=== PATIENT | male | born 1980 | race Caucasian/White ===

== ENCOUNTER 2017-11-14 14:12 | Emergency (ER) | payer BC, OTHER ==
[2017-11-14 16:17] VITALS: BP 125/81
--- NOTE | 2017-11-14 16:17 | RAD ---
INDICATION: The patient inhaled exhaust 4 days earlier at an indoor tractor pull COMPARISON: None TECHNIQUE: PA and lateral views of the chest were obtained. FINDINGS: The heart and mediastinum are normal in size and contour. The lungs are grossly clear. There is no evidence of large pleural effusion. Visualized bones are normal for the patient's age. There is no radiographic evidence of free air beneath the diaphragm IMPRESSION: No radiographic evidence of acute cardiopulmonary disease.
--- NOTE | 2017-11-14 16:30 | UC ---
Beatriz Fonseca Gabriel, scribed for Violeta Herman MD on 11/14/17 at 1515 . Shortness of Breath HPI - HPI Summary HPI Summary: This patient is a 37 year old M presenting to [facility] accompanied by his with a chief complaint of increasing SOB. Pt was at an indoor tractor pull for 11-12 hours 6 days ago and inhaled exhaust fumes. He denies any SOB at that time. The patient rates the pain 0/10 in severity. Patient reports a slight headache the day after the tractor pull that has resolved. Patient denies confusion, CP, edema, n/v/d, and palpitations. Three days ago he developed a productive coughing, sore throat, general malaise, nasal discharge, and was nauseous. He states he had no concern for CO poising and states he believed he was developing a URI. Pt additionally c/o trouble sleeping for the past 3 month after he found his father and increased stress. 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 Notably, he has morbid obesity - History of Current Complaint Chief Complaint: UCRespiratory Stated Complaint: INHALED EXHUST FUMES Time Seen by Provider: 11/14/17 14:59 Hx Obtained From: Patient Onset/Duration: Lasting Days, Still Present Timing: Constant Current Severity: Moderate Dyspnea At: Exertion Associated Signs & Symptoms: Positive: Other - productive coughing, sore throat , general malaise, nausea, nasal discharge, - Risk Factors Cardiac: Family History - Allergy/Home Medications Allergies/Adverse Reactions: Allergies Allergy/AdvReac Type Severity Reaction Status Date / Time guaifenesin [From Mucinex] Allergy Altered Verified 11/14/17 14:30 Mental Status onions Allergy Severe Nausea And Uncoded 11/16/12 11:57 Vomiting Home Medications: Home Medications Cholecalciferol TAB* [Vitamin D TAB*] 1 tab PO DAILY 11/14/17 [History Confirmed 11/14/17] Loratadine [Claritin] 10 mg PO DAILY 11/14/17 [History Confirmed 11/14/17] Omeprazole CAP* [Prilosec CAP* 20 MG] 10 mg PO DAILY 11/14/17 [History Confirmed 11/14/17] Potassium Gluconate [Potassium] 600 mg PO DAILY 11/14/17 [History Confirmed ] PMH/Surg Hx/FS Hx/Imm Hx Previously Healthy: Yes - morbid obesity GI/ History: Gastroesophageal Reflux - Surgical History Surgical History: Yes Surgery Procedure, Year, and Place: appendectomy - Family History Known Family History: Positive: Cardiac Disease - father massive [place] age 69 , Other - obesity; mother [place] breast - Social History 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 Sleep very disrupted since August when he found his father , unexpected. Is Patient Immunocompromised?: No All Other Systems Reviewed And Are Negative: Yes Physical Exam Triage Information Reviewed: Yes Appearance: Ill-Appearing - morbidly obese, looks mildly unwell. Wearing oxygen at the time of the exam, Obese Vital Signs: Initial Vital Signs Temp 98.1 F 11/14/17 14:34 Pulse 120 11/14/17 14:34 Resp 20 11/14/17 14:34 BP 122/79 11/14/17 14:34 Pulse Ox 97 11/14/17 14:34 Eyes: Positive: Conjunctiva Clear ENT: Positive: Pharynx normal Neck: Positive: Supple, Nontender, No Lymphadenopathy Respiratory: Positive: Lungs clear, Normal breath sounds Cardiovascular: Positive: RRR, No Murmur, Tachycardia Abdominal Exam: Other Musculoskeletal: Positive: Strength Intact Neurological: Positive: Alert, Muscle Tone Normal Psychological Exam: Normal Skin Exam: Normal Diagnostics - Radiology CXR Radiology Interpretation Completed By: Radiologist - No radiographic evidence of acute cardiopulmonary disease. Dr. Herman has reviewed this report. - EKG Cardiac Rate: Tachycardia - at 101 BPM Cardiac Rhythm: Sinus: Normal - no st/t changes Ectopy: None ST Segment: Normal Shortness of Breath Dx - Course Course Of Treatment: Pt medications reviewed this visit. Augmentin for treatment of sinusitis. - Differential Dx/Diagnosis Differential Diagnosis/HQI/PQRI: Bronchitis, CHF, Pneumonia, Other - URI Provider Diagnoses: sinusitis, likely early bronchitis. Grief reaction with insomnia. Discharge - Sign-Out/Discharge Documenting (check all that apply): Discharge - Discharge Plan Condition: Stable Disposition: HOME Prescriptions: Amoxicillin/Clavulanate TAB* [Augmentin TAB 875*] 875 mg PO BID #20 tab Patient Education Materials: Sinusitis (ED) Referrals: No Primary Care Phys,NOPCP [Primary Care Provider] - Additional Instructions: As reviewed,it is likely that this is a respiratory illness unrelated to the exposure last weekend. Begin augmentin for treatment of sinus and respiratory infection. Off work tomorrow. Ensure that you return to the emergency room if you have persistent shortness of breath. I suggest that you schedule a follow up visit with [facility] to seek support for insomnia and the stress you are experiencing. - Billing Disposition and Condition Condition: STABLE Disposition: HOME The documentation as recorded by the Beatriz edwards Gabriel accurately reflects the service I personally performed and the decisions made by me, Violeta Herman MD.
== END 2017-11-14 16:51 | disposition home or self-care (01) ==
LOC: UCEAST 14:12
DX: J32.9 Chronic sinusitis, unspecified (principal); F43.20 Adjustment disorder, unspecified; G47.00 Insomnia, unspecified; E66.01 Morbid (severe) obesity due to excess calories; K21.9 Gastro-esophageal reflux disease without esophagitis; F17.210 Nicotine dependence, cigarettes, uncomplicated
CPT/HCPCS: 71046; 93005; 99212; G0463

== ENCOUNTER 2018-02-10 09:07 | Emergency (ER) | payer BC ==
[2018-02-10 09:35] VITALS: BP 98/52
--- NOTE | 2018-02-10 10:26 | UC ---
Beatriz Fonseca Gabriel, scribed for Carlton Cartagena MD on 02/10/18 at 0924 . Throat Pain/Nasal Main HPI - HPI Summary HPI Summary: This patient is a 37 year old M [place] [facility] with a chief complaint of URI sx since 02-03-18. The patient rates the pain 3/10 in severity. Patient reports chills, rhinorrhea, right eye discharge, green productive cough, redness of the right eye, ears feeling plugged, and chest tightness. Patient denies fever and eye trauma. Pt is also concerned that he developed lactose intolerance after taking augmentin in october and states he has had intermittent diarrhea when he ingests dairy since. - History of Current Complaint Stated Complaint: SINUS COMPLAINT Time Seen by Provider: 02/10/18 09:15 Hx Obtained From: Patient Onset/Duration: Lasting Days, Still Present Severity: Moderate Pain Intensity: 3 Cough: Productive Associated Signs & Symptoms: Positive: Negative - eye trauma, Nasal Discharge. Negative: Fever - Allergies/Home Medications Allergies/Adverse Reactions: Allergies Allergy/AdvReac Type Severity Reaction Status Date / Time guaifenesin [From Mucinex] Allergy Altered Verified 11/14/17 14:30 Mental Status onions Allergy Severe Nausea And Uncoded 11/16/12 11:57 Vomiting PMH/Surg Hx/FS Hx/Imm Hx Other History Of: Negative For: Hepatitis B, Anticoagulant Therapy - Surgical History Surgical History: Yes Surgery Procedure, Year, and Place: appendectomy - Family History Known Family History: Positive: Cardiac Disease - father massive [place] age 69 , Other - obesity; mother [place] breast - Social History Occupation: Employed Full-time Lives: With Family Alcohol Use: Occasionally Substance Use Type: None Smoking Status (MU): Light Every Day Tobacco Smoker Review of Systems Constitutional: Negative - fever, Chills Eyes: Eye Redness, Other - discharge ENT: Nasal Discharge, Other - ears feel plugged Respiratory: Cough - productive, Other - chest tightness All Other Systems Reviewed And Are Negative: Yes Physical Exam - Summary Physical Exam Summary: General: well-appearing, no pain distress Skin: warm, color reflects adequate perfusion, dry Head: normal Eyes: EOMI, NICHOLAS positive right sclera injection and drainage ENT: positive rhinorrhea, Neck: supple, nontender Respiratory: CTA, breath sounds present Cardiovascular: RRR Abdomen: soft, nontender Bowel: present Musculoskeletal: normal, strength/ROM intact Neurological: sensory/motor intact, A&O x3 Psychological: affect/mood appropriate Triage Information Reviewed: Yes Vital Signs: Initial Vital Signs Temp 98.5 F 02/10/18 09:18 Pulse 82 02/10/18 09:18 Resp 18 02/10/18 09:18 BP 98/52 02/10/18 09:18 Pulse Ox 98 02/10/18 09:18 Vital Signs Reviewed: Yes Throat Pain/Nasal Course/Dx - Course Course Of Treatment: PATIENT TOLD ME HE HAD DIARRHEA AFTER TAKING AUGMENTIN IN OCTOBER. THEREFORE, WILL TREAT WITH AZITHROMYCIN. F/U PMD; RECHECK SOONER IF WORSE. Assessment/Plan: Medications reviewed. Allergies noted. - Differential Dx/Diagnosis Provider Diagnoses: RIGHT CONJUNCTIVITIS. SINUSITIS Discharge - Sign-Out/Discharge Documenting (check all that apply): Discharge/Admit/Transfer - Discharge Plan Condition: Stable Disposition: HOME Prescriptions: Azithromyxin MANJINDER (NF) [Z-Manjinder (Zithromax) 250 mg tabs #6] 2 tab PO .TODAY, THEN 1 DAILY #6 tab Tobramycin 0.3% OPHTH.DEBBIE* 1 drop RIGHT EYE Q4H #1 btl Patient Education Materials: Sinusitis (ED), Conjunctivitis (ED) Referrals: [facility] [Provider Group] [facility] [Provider Group] [facility] [Outside] Hal Barrow MD [Medical Doctor] - Antwan Steele MD [Medical Doctor] - Additional Instructions: FOLLOW UP WITH YOUR DOCTOR. GET RECHECKED FOR ANY WORSENING OF YOUR CONDITION OR QUESTIONS OR CONCERNS. - Billing Disposition and Condition Condition: STABLE Disposition: Home The documentation as recorded by the Beatriz edwards Gabriel accurately reflects the service I personally performed and the decisions made by me, Carlton Cartagena MD.
== END 2018-02-10 09:41 | disposition home or self-care (01) ==
LOC: UCEAST 09:07
DX: H10.31 Unspecified acute conjunctivitis, right eye (principal); J32.9 Chronic sinusitis, unspecified; Z88.8 Allergy status to other drugs, medicaments and biological substances; Z91.018 Allergy to other foods; Z82.49 Family history of ischemic heart disease and other diseases of the circulatory system; Z80.3 Family history of malignant neoplasm of breast; F17.200 Nicotine dependence, unspecified, uncomplicated
CPT/HCPCS: 99211; G0463

== ENCOUNTER 2019-09-09 17:32 | Emergency (ER) | payer BC ==
[2019-09-09 17:59] LABS: ABS Eosinophils 0.1 10^3/ul (0-0.6); ABS Lymphocytes 1.9 10^3/ul (1.0-4.8); ABS Monocytes 0.7 10^3/ul (0-0.8); ABS Neutrophils 7.2 10^3/ul (1.5-7.7); Eosinophil % 1.4 %; Hematocrit 44 % (42-52); Hemoglobin 15.1 g/dL (14.0-18.0); Lymphocyte % 19.4 %; Mean Corpuscular HGB Conc 34 g/dL (31-36); Mean Corpuscular Hemoglobin 29 pg (27-31); Mean Corpuscular Volume 85 fL (80-94); Mean Platelet Volume 7.8 fL (7.4-10.4); Nucleated Red Blood Cells % 0.1; Platelet Count 245 10^3/uL (150-450); Red Blood Count 5.19 10^6 /uL (4.18-5.48); Red Cell Distribution Width 14 % (10-15)
[2019-09-09 18:07] LABS: INR 1.05 (0.82-1.09)
[2019-09-09 18:17] LABS: Albumin 4.3 g/dL (3.2-5.2); Albumin/Globulin Ratio 1.5 (1-3); BUN/Creatinine Ratio 19.6 (8-20); Calcium 9.5 mg/dL (8.6-10.3); EGFR African American 110.8 (>60); EGFR Non-African American 91.6 (>60); Globulin 2.9 g/dL (2-4); Potassium 3.9 mmol/L (3.5-5.0); Total Bilirubin 0.5 mg/dL (0.2-1.0); Total Protein 7.2 g/dL (6.4-8.9)
--- NOTE | 2019-09-09 19:20 | ED ---
Throat Pain/Nasal Congestion - HPI Summary HPI Summary: Patient presents to ED from urgent care after EKG to rule out STEMI. Patient went to urgent care for ear pain, diagnosed with ear infection, had elevated heart rate at urgent care which led to EKG. Patient denies fever, cough, sore throat, CV, SOB, N/P 60, abdominal pain, change in urine, change in BM. Medical history is none. No prior cardiac history. - History of Current Complaint Chief Complaint: EDEarPain Time Seen by Provider: 09/09/19 19:12 Hx Obtained From: Patient, Family/Poker Manager Severity: Mild Associated Signs And Symptoms: Positive: Negative Cough: None - Allergies/Home Medications Allergies/Adverse Reactions: Allergies Allergy/AdvReac Type Severity Reaction Status Date / Time guaifenesin [From Mucinex] Allergy Altered Verified 11/14/17 14:30 Mental Status onions Allergy Severe Nausea And Uncoded 11/16/12 11:57 Vomiting PMH/Surg Hx/FS Hx/Imm Hx Endocrine/Hematology History: Denies: Hx Anticoagulant Therapy, Hx Diabetes, Hx Thyroid Disease Cardiovascular History: Denies: Hx Hypertension Respiratory History: Denies: Hx Asthma, Hx Chronic Obstructive Pulmonary Disease (COPD) GI History: Denies: Hx Ulcer History: Denies: Hx Dialysis Sensory History: Denies: Hx Eye Prosthesis Opthamlomology History: Denies: Hx Legally Blind EENT History: Denies: Hx Deafness Neurological History: Denies: Hx Dementia - Surgical History Surgery Procedure, Year, and Place: appendectomy Infectious Disease History: No Infectious Disease History: Denies: Hx Hepatitis, Hx Human Immunodeficiency Virus (HIV), Traveled Outside the [place] in Last 30 Days - Family History Known Family History: Positive: None, Cardiac Disease - father massive [place] age 69, Other - obesity; mother [place] breast - Social History Alcohol Use: Occasionally Substance Use Type: Reports: None Smoking Status (MU): Light Every Day Tobacco Smoker Review of Systems Constitutional: Negative Eyes: Negative ENT: Negative Cardiovascular: Other Respiratory: Negative Gastrointestinal: Negative Genitourinary: Negative Musculoskeletal: Negative Skin: Negative Neurological: Negative Psychological: Normal All Other Systems Reviewed And Are Negative: Yes Physical Exam - Summary Physical Exam Summary: Patient mildly tachycardic with rate between 101-110. Exam otherwise unremarkable. Triage Information Reviewed: Yes Vital Signs On Initial Exam: Initial Vitals Temp Pulse Resp BP Pulse Ox 97.5 F 116 18 140/82 97 09/09/19 17:34 09/09/19 17:34 09/09/19 17:34 09/09/19 17:34 09/09/19 17:34 Vital Signs Reviewed: Yes Appearance: Positive: Well-Appearing Skin: Positive: Warm Head/Face: Positive: Normal Head/Face Inspection Eyes: Positive: Normal Neck: Positive: Supple Respiratory/Lung Sounds: Positive: Clear to Auscultation Cardiovascular: Positive: Normal Abdomen Description: Positive: Nontender Musculoskeletal: Positive: Normal Neurological: Positive: Normal Psychiatric: Positive: Normal AVPU Assessment: Alert - Loman Coma Scale Best Eye Response: 4 - Spontaneous Best Motor Response: 6 - Obeys Commands Best Verbal Response: 5 - Oriented Coma Scale Total: 15 Procedures - Sedation Patient Received Moderate/Deep Sedation with Procedure: No Diagnostics - Vital Signs Vital Signs Temp Pulse Resp BP Pulse Ox 09/09/19 17:34 97.5 F 116 18 140/82 97 - Laboratory Lab Results: Lab Results 09/09/19 09/09/19 09/09/19 Range/Units 17:53 17:53 17:53 WBC 10.0 (3.5-10.8) 10^3/uL RBC 5.19 (4.18-5.48) 10^6 /uL Hgb 15.1 (14.0-18.0) g/dL Hct 44 (42-52) % MCV 85 (80-94) fL MCH 29 (27-31) pg MCHC 34 (31-36) g/dL RDW 14 (10-15) % Plt Count 245 (150-450) 10^3/uL MPV 7.8 (7.4-10.4) fL Neut % (Auto) 71.5 % Lymph % (Auto) 19.4 % [place] % (Auto) 7.2 % Eos % (Auto) 1.4 % Baso % (Auto) 0.5 % Absolute Neuts (auto) 7.2 (1.5-7.7) 10^3/ul Absolute Lymphs (auto) 1.9 (1.0-4.8) 10^3/ul Absolute Monos (auto) 0.7 (0-0.8) 10^3/ul Absolute Eos (auto) 0.1 (0-0.6) 10^3/ul Absolute Basos (auto) 0.0 (0-0.2) 10^3/ul Absolute Nucleated RBC 0.0 10^3/ul Nucleated RBC % 0.1 INR (Anticoag Therapy) 1.05 (0.82-1.09) Sodium 138 (135-145) mmol/L Potassium 3.9 (3.5-5.0) mmol/L Chloride 104 (101-111) mmol/L Carbon Dioxide 25 (22-32) mmol/L Anion Gap 9 (2-11) mmol/L BUN 18 (6-24) mg/dL Creatinine 0.92 (0.67-1.17) mg/dL Est GFR ( Amer) 110.8 (>60) Est GFR (Non-Af Amer) 91.6 (>60) BUN/Creatinine Ratio 19.6 (8-20) Glucose 136 H (70-100) mg/dL Calcium 9.5 (8.6-10.3) mg/dL Total Bilirubin 0.50 (0.2-1.0) mg/dL AST 23 (13-39) U/L ALT 37 (7-52) U/L Alkaline Phosphatase 56 (34-104) U/L Troponin I 0.00 (<0.03) ng/mL Total Protein 7.2 (6.4-8.9) g/dL Albumin 4.3 (3.2-5.2) g/dL Globulin 2.9 (2-4) g/dL Albumin/Globulin Ratio 1.5 (1-3) Result Diagrams: 09/09/19 17:53 09/09/19 17:53 Lab Statement: Any lab studies that have been ordered have been reviewed, and results considered in the medical decision making process. EENT Course/Dx - Course Course Of Treatment: Patient presents to ED from urgent care after EKG to rule out STEMI. Patient went to urgent care for ear pain, diagnosed with ear infection, had elevated heart rate at urgent care which led to EKG. Patient denies fever, cough, sore throat, CV, SOB, N/P 60, abdominal pain, change in urine, change in BM. Medical history is none. No prior cardiac history. Mildly tachycardic. Vital signs otherwise within normal limits. Labs unremarkable. EKG sinus tachycardia. Discussed patient with Dr. barajas who agreed patient to be discharged home. Patient prescribed Ciprodex by urgent care. - Diagnoses Provider Diagnoses: Tachycardia Discharge ED - Sign-Out/Discharge Documenting (check all that apply): Patient Departure - Discharge Plan Condition: Stable Disposition: HOME Patient Education Materials: Tachycardia (ED) Referrals: No Primary Care Phys,NOPCP [Primary Care Provider] - Iris Kyes MD [Medical Doctor] - Additional Instructions: Return to the ED for any new or worsening symptoms. - Billing Disposition and Condition Condition: STABLE Disposition: Home
[2019-09-09 21:00] VITALS: BP 139/93
== END 2019-09-09 19:46 | disposition home or self-care (01) ==
LOC: ED 17:32
DX: R00.0 Tachycardia, unspecified (principal); F17.210 Nicotine dependence, cigarettes, uncomplicated; H66.90 Otitis media, unspecified, unspecified ear
CPT/HCPCS: 36415; 80053; 84484; 85025; 85610; 93005; 99282